=== PATIENT | female | born 1950 | race Caucasian/White ===

== ENCOUNTER → 2018-09-14 | Outpatient (CLI) | payer BC, MEDICARE ==
[~2018-09-14] MED LIST: IBUP600; LOSARTAN POTAS100 MG; METO25ER; TRIHYD253A; ZYRTEC10 M1
[2018-09-16 14:08] LABS: HPV 16 Negative (Negative); HPV 18 Positive (Negative); HPV OTHER HR TYPES Negative (Negative)
== END | disposition home or self-care (01) ==
LOC: LAB SHORT 12:49 → LAB 12:49
PROVIDERS: Obstetrics & Gynecology Gynecology
DX: Z91.89 Other specified personal risk factors, not elsewhere classified (principal)
CPT/HCPCS: 87624; G0123

== ENCOUNTER → 2018-10-13 | Outpatient (CLI) | payer BC, MEDICARE | END | disposition home or self-care (01) | LOC: PLD 07:08 → LAB SHORT 07:08 | DX: R87.810 Cervical high risk human papillomavirus (HPV) DNA test positive (principal) | CPT/HCPCS: 88305 ==

== ENCOUNTER → 2021-03-11 | Outpatient (CLI) | payer OTHER | END | disposition home or self-care (01) | LOC: LAB SHORT 08:33 | DX: E87.6 Hypokalemia (principal) | CPT/HCPCS: 84132 ==

== ENCOUNTER → 2021-09-10 | Outpatient (CLI) | payer OTHER ==
[2021-09-11 08:11] LABS: A/G RATIO 1.4 (1.2-2.2); ALKALINE PHOSPHATASE, S 93 IU/L (44-121); ALT (SGPT) 17 IU/L (0-32); AST (SGOT) 24 IU/L (0-40); BASO (ABSOLUTE) 0.1 x10E3/uL (0.0-0.2); BASOS 1 % (Not Estab.); BILIRUBIN, TOTAL 0.4 mg/dL (0.0-1.2); BUN 16 mg/dL (8-27); BUN/CREATININE RATIO 25 (12-28); CALCIUM, SERUM 9.1 mg/dL (8.7-10.3); CARBON DIOXIDE, TOTAL 26 mmol/L (20-29); CHLORIDE, SERUM 99 mmol/L (96-106); CHOLESTEROL, TOTAL 191 mg/dL (100-199); CREATININE, SERUM 0.63 mg/dL (0.57-1.00); EGFR IF AFRICN AM 104 (>59); EGFR IF NONAFRICN AM 91 (>59); EOS 3 % (Not Estab.); EOS (ABSOLUTE) 0.2 x10E3/uL (0.0-0.4); GLOBULIN, TOTAL 2.8 g/dL (1.5-4.5); GLUCOSE, SERUM 106 mg/dL (65-99); HDL CHOLESTEROL 98 mg/dL (>39); HEMATOCRIT 36.5 % (34.0-46.6); IMMATURE GRANULOCYTES 0 % (Not Estab.); LDL CHOLESTEROL CALC 79 mg/dL (0-99); LYMPHS 26 % (Not Estab.); LYMPHS (ABSOLUTE) 1.4 x10E3/uL (0.7-3.1); MCH 29.9 pg (26.6-33.0); MCHC 32.9 g/dL (31.5-35.7); MCV 91 fL (79-97); MONOCYTES 9 % (Not Estab.); MONOCYTES(ABSOLUTE) 0.5 x10E3/uL (0.1-0.9); NEUTROPHILS 61 % (Not Estab.); NEUTROPHILS (ABSOLUTE) 3.1 x10E3/uL (1.4-7.0); PLATELETS 242 x10E3/uL (150-450); POTASSIUM, SERUM 3.9 mmol/L (3.5-5.2); PROTEIN, TOTAL, SERUM 6.8 g/dL (6.0-8.5); RBC 4.02 x10E6/uL (3.77-5.28); RDW 13.4 % (11.7-15.4); SODIUM, SERUM 137 mmol/L (134-144); TRIGLYCERIDES 80 mg/dL (0-149); VLDL CHOLESTEROL CAL 14 mg/dL (5-40); WBC 5.1 x10E3/uL (3.4-10.8)
== END | disposition home or self-care (01) ==
LOC: LAB SHORT 10:20
PROVIDERS: Hospitalist
DX: I10 Essential (primary) hypertension (principal)
CPT/HCPCS: 80053; 80061; 85025

== ENCOUNTER 2022-09-30 07:40 | Observation (INO) | payer OTHER ==
[~2022-09-30] VITALS: Ht 157.5 cm; Wt 107.0 kg
[~2022-09-30 07:40] MED LIST changes: +ALBU90OI; +DYAZIDE 37.5-21 EACH PO; -IBUP600; +IBUP600 PO; +LOSARTAN POTAS100 M1 PO; -LOSARTAN POTAS100 MG; +METO100ER PO; +MONT10T PO; +OMEP20ER PO; +Pulmicort Fle180 MCG INH; -TRIHYD253A; -ZYRTEC10 M1; +ZYRTEC10 M1 PO
--- NOTE | 2022-09-30 18:47 | NUR ---
PT SUMMARY: PT ARRIVED IN THE ROOM FROM THE [facility] AT APPROX 1400, PT IS PSOT ANGIOPLASTY NO STENTS, TO RE-ATTEMPT ANGIO AGAIN IN AM TO OPEN UP THE REMAINING OCCLUDED VESSELS, RIGHT RADIAL SITE REMAINS CDI NO HEMATOMA/BLEEDING AROUND THE SITE, IMMOBILIZER IN PLACE. VITALS HAS BEEN STABLE. PT AMBULATORY IN THE ROOM ALERT AND ORIENTED X4. PT C/O CHEST PRESSURE 3/10 X1 PT STATED ITS NOT THE SAME ITS BEEN BEFORE THE PROCEDURE, MOST LIKELY BEING SORE FROM ANGIOPLASTY. SON HAS BEEN AT THE BEDSIDE UNTIL END OF SHIFT AWARE OF THE PLAN OF CARE. NO OTHER ISSUES REPORTED AT THIS TIME, PT CALLS APPROPRIATELY. WILL MONITOR
--- NOTE | 2022-10-01 04:54 | NUR ---
SHIFT SUMMARY: Uneventful shift. Patient's vitals are stable, no complaints of chest pain. Right radial site clean, intact, soft. Patient ambulating and performing ADLS independently. NPO except sips of water since midnight pending repeat angio today.
[2022-10-01 08:27] LABS: BASOPHILS ABSOLUTE AUTO 0.03 K/mm3 (0.00-0.23); BASOPHILS PERCENT AUTO 1 % (0-2); EOSINOPHILS ABSOLUTE AUTO 0.15 K/mm3 (0.00-0.68); EOSINOPHILS PERCENT AUTO 3 % (0-6); Hematocrit 35.8 % (33.0-51.0); IMMATURE GRAN ABSOLUTE AUTO 0.01 K/mm3 (0.00-0.10); IMMATURE GRAN PERCENT AUTO 0 % (0-1); LYMPHOCYTES ABSOLUTE AUTO 1.22 K/mm3 (0.84-5.20); LYMPHOCYTES PERCENT AUTO 24 % (21-46); MONOCYTES ABSOLUTE AUTO 0.58 K/mm3 (0.16-1.47); MONOCYTES PERCENT AUTO 12 % (4-13); Mean Corpuscular HGB 30.3 pg (26.0-34.0); Mean Corpuscular HGB Conc 33.5 g/dL (31.5-36.5); Mean Corpuscular Volume 90 fL (80-100); Mean Platelet Volume 11.3 fL (9.1-12.4); NEUTROPHILS ABSOLUTE AUTO 3.06 K/mm3 (1.96-9.15); NEUTROPHILS PERCENT AUTO 61 % (41-73); Platelet Count 250 K/mm3 (150-400); RDW Coefficient Variation 16.1 % (11.7-14.2); RDW Standard Deviation 53.7 fL (35.1-46.3); Red Blood Cell Count 3.96 M/mm3 (3.80-5.20); White Blood Cell Count 5.05 K/mm3 (4.00-11.30)
[2022-10-01 08:52] LABS: Bun/Creatinine Ratio 22.3 (12.0-20.0); Calcium, Blood 9.2 mg/dL (8.5-10.1); Creatinine, Blood 0.67 mg/dL (0.40-1.00); Potassium, Blood 3.7 mmol/L (3.5-5.5)
--- NOTE | 2022-10-01 18:18 | NUR ---
END OF SHIFT NOTE PT IS A&O X 4, SPO2: >92% on RA. SINUS CAROL, HR 50-60 *AM METOPROLOL SUC HELD DUE TO HR IN THE 50s. BP THEN ELEVATED, IV HYDRALAZINE GIVEN PER MD ORDER. PT FEELING "HOT ACROSS FACE & EYES" & PT CHEEKS FLUSH AFTER IV ADMINISTRATION. SYMTPOMS QUICKLY RESOLVED. PT REPORTING SOB, CHEST PAIN, AND PRESSURE ONLY WHEN AMBULATING TO BATHROOM. DR. PERALES IS SEEKING TRANSFER TO ANOTHER FACILITY FOR TX. PTS FAMILY HAS REMAINED AT BEDSIDE THROUGHOUT THE SHIFT.
--- NOTE | 2022-10-01 18:50 | NUR ---
THIS RN AGREES W/ STUDENT NURSE END OF SHIFT NOTE & CHARTING THIS SHIFT.
--- NOTE | 2022-10-01 20:05 | NUR ---
ASSUMED CARE. AT BEDSIDE, WATCHING A MOVIE WITH HER. DENIES ANY CHEST PAIN OR DISCOMFORT. STATES SHE DOES GET MILD PRESSURE IN CHEST WHEN SHE GETS UP TO THE BATHROOM, SOB WELL. STATES IT TAKES HER ABOUT A MIN OR TWO TO RECOVER. CHEST PAIN WHEN SHE HAS IT IS MILD, TOLERABLE. MILD EDEMA TO BLE. VS WNL AT THIS TIME. DENIES ANY NEEDS. WILL MONITOR.
--- NOTE | 2022-10-02 06:35 | NUR ---
SHIFT SUMMARY: PT REMAINED STABLE T/O NIGHT. NO CHEST PAIN OR SOB NOTED UNLESS SHE GOT UP TO THE BATHROOM AT WHICH DYSPNEA ONLY LASTED A MINUTE OR SO. ABLE TO GET UP INDEPENDANTLY WITH NO DIZZINESS. VS REMAINED STABLE. RIGHT RADIAL SITE WITH ARMBOARD, NO HEMATOMA, OR SIGNS OF BLEEDING. PLAN IS FOR DISCHARGE OR COBRA TRANSFER TODAY. PT IS AWARE OF PLAN. NO OTHER CHANGES TO REPORT. CALL LIGHT IS IN REACH.
--- NOTE | 2022-10-02 18:19 | NUR ---
END OF SHIFT NOTE PT A&O X4. VSS. SPO2 > 92% ON RA. MONITOR SHOWING SR, HR 60s. PT W/ NO CP/PRESSURE THIS SHIFT. PT AWAITING TRANSER TO ANOTHER FACILITY, ON WAITING LIST FOR BED.
--- NOTE | 2022-10-02 18:51 | NUR ---
COBRA UPDATE BED ASSIGNMENT FROM [facility]. REPORT CALLED TO [facility]EPTING [facility]. TRANSPORT TO TAKE PT WHEN AVAILABLE.
--- NOTE | 2022-10-02 20:21 | NUR ---
ASSUMPTION OF CARE AND TRANSFER NOTE PT A&O X4. PT DENIES CP OR PRESSURE, DENIES SOB. VSS. PT RESTING IN BEDSIDE CHAIR W/DAUGHTER KAREN AT BEDSIDE. PT PLESANT UPON INTERACTION. PT DENIES ANY CONCERNS OR NEEDS AT THIS TIME. HR SR W/RATE IN 60'S. THIS RN INFORMED PT AND DAUGHTER THAT TRANSPORTATION WAS CALLED AND SHOULD ARRIVE SOON. TRANSPORTATION ARRIVED AT [address] [facility] PT. REPORT GIVEN BY THIS RN. PT BELONGINGS SENT WITH HER AND TRANSPORT. PT LEFT VIA [facility], PT TRANSFERRED SELF TO [facility]. DAUGHTER KAREN WILL FOLLOW PT UP.
== END 2022-10-02 20:35 | disposition short-term general hospital (02) ==
LOC: PCU 07:40 → MHTC 07:40 → PCU 13:59 → MHTC 10-02 20:34 → PCU 10-02 20:34
PROVIDERS: Internal Medicine Cardiovascular Disease; ADMIT Internal Medicine Cardiovascular Disease
DX: R07.89 Other chest pain (principal); I25.10 Atherosclerotic heart disease of native coronary artery without angina pectoris; I10 Essential (primary) hypertension; E78.5 Hyperlipidemia, unspecified; J44.9 Chronic obstructive pulmonary disease, unspecified; G47.33 Obstructive sleep apnea (adult) (pediatric); E66.9 Obesity, unspecified; Z79.899 Other long term (current) drug therapy; Z88.2 Allergy status to sulfonamides; Z88.8 Allergy status to other drugs, medicaments and biological substances
CPT/HCPCS: 36415; 76937; 80048; 85025; 85347; 92920; 93454; 94640; 94664; 94760; 99152; 99153; A9270; C1725; C1769; C1874; C1887; C1894; J0360; J1644; J2250; J2405; J3010; J7030; J7040; J7050; Q9967

== ENCOUNTER 2022-11-12 02:11 | Day surgery (SDC) | payer OTHER | END 2022-11-12 22:51 | disposition home or self-care (01) | LOC: WOUND 02:11 | DX: T81.32XA Disruption of internal operation (surgical) wound, not elsewhere classified, initial encounter (principal); Z88.2 Allergy status to sulfonamides; I10 Essential (primary) hypertension | CPT/HCPCS: A9270; G0463 ==

== ENCOUNTER 2022-11-16 00:11 | Day surgery (SDC) | payer OTHER | END 2022-11-16 22:42 | disposition home or self-care (01) | LOC: WOUND 00:11 | DX: T81.31XD Disruption of external operation (surgical) wound, not elsewhere classified, subsequent encounter (principal); Y83.8 Other surgical procedures as the cause of abnormal reaction of the patient, or of later complication, without mention of misadventure at the time of the procedure; I10 Essential (primary) hypertension | CPT/HCPCS: G0463 ==

== ENCOUNTER 2022-11-18 03:30 | Day surgery (SDC) | payer OTHER | END 2022-11-18 23:01 | disposition home or self-care (01) | LOC: WOUND 03:30 | DX: T81.31XD Disruption of external operation (surgical) wound, not elsewhere classified, subsequent encounter (principal); Y83.8 Other surgical procedures as the cause of abnormal reaction of the patient, or of later complication, without mention of misadventure at the time of the procedure; I10 Essential (primary) hypertension | CPT/HCPCS: G0463 ==

== ENCOUNTER 2022-11-20 01:00 | Day surgery (SDC) | payer OTHER | END 2022-11-20 22:56 | disposition home or self-care (01) | LOC: WOUND 01:00 | DX: T81.31XD Disruption of external operation (surgical) wound, not elsewhere classified, subsequent encounter (principal); I10 Essential (primary) hypertension | CPT/HCPCS: G0463 ==

== ENCOUNTER 2022-11-23 00:17 | Day surgery (SDC) | payer OTHER | END 2022-11-23 22:52 | disposition home or self-care (01) | LOC: WOUND 00:17 | DX: T81.31XD Disruption of external operation (surgical) wound, not elsewhere classified, subsequent encounter (principal); I10 Essential (primary) hypertension | CPT/HCPCS: G0463 ==

== ENCOUNTER 2022-11-25 02:06 | Day surgery (SDC) | payer OTHER | END 2022-11-25 23:03 | disposition home or self-care (01) | LOC: WOUND 02:06 | DX: T81.31XD Disruption of external operation (surgical) wound, not elsewhere classified, subsequent encounter (principal); Y83.8 Other surgical procedures as the cause of abnormal reaction of the patient, or of later complication, without mention of misadventure at the time of the procedure; I10 Essential (primary) hypertension | CPT/HCPCS: G0463 ==

== ENCOUNTER 2022-11-27 01:54 | Day surgery (SDC) | payer OTHER | END 2022-11-27 22:49 | disposition home or self-care (01) | LOC: WOUND 01:54 | DX: T81.32XA Disruption of internal operation (surgical) wound, not elsewhere classified, initial encounter (principal); I10 Essential (primary) hypertension; Z95.1 Presence of aortocoronary bypass graft | CPT/HCPCS: G0463 ==

== ENCOUNTER 2022-11-30 00:48 | Day surgery (SDC) | payer OTHER | END 2022-11-30 22:59 | disposition home or self-care (01) | LOC: WOUND 00:48 | DX: T81.31XD Disruption of external operation (surgical) wound, not elsewhere classified, subsequent encounter (principal); S21.102D Unspecified open wound of left front wall of thorax without penetration into thoracic cavity, subsequent encounter; I10 Essential (primary) hypertension; X58.XXXD Exposure to other specified factors, subsequent encounter | CPT/HCPCS: G0463 ==

== ENCOUNTER 2022-12-07 00:39 | Day surgery (SDC) | payer OTHER | END 2022-12-07 22:41 | disposition home or self-care (01) | LOC: WOUND 00:39 | DX: T81.31XA Disruption of external operation (surgical) wound, not elsewhere classified, initial encounter (principal); S21.102A Unspecified open wound of left front wall of thorax without penetration into thoracic cavity, initial encounter; I10 Essential (primary) hypertension; Y83.8 Other surgical procedures as the cause of abnormal reaction of the patient, or of later complication, without mention of misadventure at the time of the procedure | CPT/HCPCS: G0463 ==

== ENCOUNTER 2022-12-14 00:14 | Day surgery (SDC) | payer OTHER | END 2022-12-14 22:59 | disposition home or self-care (01) | LOC: WOUND 00:14 | DX: T81.31XD Disruption of external operation (surgical) wound, not elsewhere classified, subsequent encounter (principal); S21.102D Unspecified open wound of left front wall of thorax without penetration into thoracic cavity, subsequent encounter; X58.XXXD Exposure to other specified factors, subsequent encounter; I10 Essential (primary) hypertension; Z95.1 Presence of aortocoronary bypass graft | CPT/HCPCS: G0463 ==

== ENCOUNTER 2022-12-21 08:00 | Day surgery (SDC) | payer OTHER | END 2022-12-21 23:59 | disposition home or self-care (01) | LOC: WOUND 08:00 | DX: T81.31XD Disruption of external operation (surgical) wound, not elsewhere classified, subsequent encounter (principal); Y83.8 Other surgical procedures as the cause of abnormal reaction of the patient, or of later complication, without mention of misadventure at the time of the procedure; S21.102D Unspecified open wound of left front wall of thorax without penetration into thoracic cavity, subsequent encounter; X58.XXXD Exposure to other specified factors, subsequent encounter; I10 Essential (primary) hypertension | CPT/HCPCS: G0463 ==

== ENCOUNTER → 2023-10-14 | Outpatient (CLI) | payer OTHER ==
[2023-10-15 17:05] LABS: HEPATITIS C AB CIA INTERP Negative (Negative); HEPATITIS C ANTIBODY CIA INDEX 0.06 IV
[2023-10-15 17:39] LABS: HIV 1,2 COMBO ANTIGEN/ANTIBODY Negative (Negative)
[2023-10-16 13:37] LABS: APTIMA MEDIA TYPE Urine; C. TRACHOMATIS BY TMA Negative (Negative); N. GONORRHOEAE BY TMA Negative (Negative); SPECIMEN SOURCE Urine
== END ==
LOC: LAB 11:30 → LAB SHORT 11:30
PROVIDERS: Hospitalist
DX: Z11.3 Encounter for screening for infections with a predominantly sexual mode of transmission (principal)
CPT/HCPCS: 86592; 86803; 87389; 87491; 87591

== ENCOUNTER 2024-04-12 10:53 | Day surgery (SDC) | payer OTHER ==
[~2024-04-12] VITALS: Ht 157.5 cm; Wt 91.5 kg
[~2024-04-12 10:53] MED LIST changes: +Lidocaine HCl/Pf 1% 5 ML VIAL ONE; +Triamcinolone Inj Susp 40 MG / ML 1ML Vial ONE
[2024-04-12] MEDS ORDERED: Aspir 8181 MG PO (12:15)
[2024-04-12] MEDS ORDERED: ATOR40TA PO (12:23)
[2024-04-12] MEDS ORDERED: KLOR-CON 1010 ME9 PO (12:24)
[2024-04-12] MEDS ORDERED: FUROSEMIDE40 MG PO (12:24)
[2024-04-12] MEDS ORDERED: METFORMIN HCL500 M3 PO (12:24)
[2024-04-12] MEDS ORDERED: Lactated Ringer's 1,000 ML IV ONE ×3 (12:46→15:32)
[2024-04-12] MEDS ORDERED: propofoL 20 ML IV ONE (13:07)
[2024-04-12] MEDS ORDERED: FentaNYL Citrate 50 MCG/ML 2 ML Injection ONE ×2 (13:08→15:15)
[2024-04-12] MEDS ORDERED: Midazolam HCl 1MG / ML 2ML Vial ONE (13:08)
--- NOTE | 2024-04-12 13:43 | NUR ---
04/12/[address] IN TO CUT CAST ON OP ARM
[2024-04-12] MEDS ORDERED: CeFAZolin Sodium 2,000 MG VIAL ONE (13:53)
[2024-04-12] MEDS ORDERED: NS 50 ML IV ONE (13:53)
--- NOTE | 2024-04-12 14:29 | NUR ---
04/12/24 1429 Lauren Bernal 0.15ML EPI (1MG/ML) ADDED TO 0.5% BUPIVACAINE TO MAKE BUPIVACAINE 0.5% WITH ePI 1:200,000 ON FIELD.
[2024-04-12] MEDS ORDERED: Bupivacaine 0.5% HCl 5 MG/ML 30MLVIAL INJ ONE (14:34)
[2024-04-12] MEDS ORDERED: EPINEPhrine HCl 1 MG/ML 1ML Amp XX ONE (14:35)
[2024-04-12] MEDS ORDERED: Ondansetron HCl 2 MG / ML 2ML Vial ONE (15:08)
[2024-04-12] MEDS ORDERED: Dexamethasone Sod Phos 10 MG/ML 1ML VIAL ONE (15:08)
[2024-04-12] MEDS ORDERED: ePHEDrine Sulfate 50 MG/ML 1ML Injection ONE (15:08)
[2024-04-12 15:57] VITALS: BP 154/87
--- NOTE | 2024-04-12 16:57 | NUR ---
04/12/24 1657 Phillip Galarza PULSE OXYMETRY INITIALLY SHOWED BREIF DROPS LOW 89% IN SDU. PT WAS ABLE TO QUICKLY RAISE O2 TO >94%. SHE DENIED DIZZINESS, SOB, AND OTHER RESPIRATORY SYMPTOMS. NONE WERE OBSERVED. PULSE OXYMETRY SWITCHED TO LEFT HAND AND PT MOVED TO CHAIR AT 1601. PT MAINTAINED O2 >94% FOLLOWING TRANSFER.
== END 2024-04-12 17:01 | disposition home or self-care (01) ==
LOC: ORSCSDS 10:53
PROVIDERS: Orthopaedic Surgery
PROC: 0PSH04Z Reposition Right Radius with Internal Fixation Device, Open Approach (ICD-10-PCS; principal; 2024-04-12 12:30)
DX: S52.501A Unspecified fracture of the lower end of right radius, initial encounter for closed fracture (principal); I10 Essential (primary) hypertension; K21.9 Gastro-esophageal reflux disease without esophagitis; E11.9 Type 2 diabetes mellitus without complications; E03.9 Hypothyroidism, unspecified; J45.909 Unspecified asthma, uncomplicated; E66.01 Morbid (severe) obesity due to excess calories; Z68.36 Body mass index [BMI] 36.0-36.9, adult; I20.89 Other forms of angina pectoris; Z79.84 Long term (current) use of oral hypoglycemic drugs; Z79.899 Other long term (current) drug therapy
CPT/HCPCS: 82947; C1713; J0171; J0690; J1100; J2001; J2250; J2405; J2704; J3010; J3301; J7120

== ENCOUNTER → 2024-11-16 | Outpatient (CLI) | payer OTHER ==
[~2024-11-16] MED LIST changes: +ATOR40TA PO; +Aspir 8181 MG PO; +FUROSEMIDE40 MG PO; +KLOR-CON 1010 ME9 PO; -Lidocaine HCl/Pf 1% 5 ML VIAL ONE; +METFORMIN HCL500 M3 PO; -Triamcinolone Inj Susp 40 MG / ML 1ML Vial ONE
== END ==
LOC: LAB SHORT 10:59 → LAB 10:59
DX: R31.9 Hematuria, unspecified (principal)
CPT/HCPCS: 87077; 87086; 87186

== ENCOUNTER → 2025-03-29 | Outpatient (CLI) | payer OTHER ==
[~2025-03-29] MED LIST changes: +BREO ELLIPTA 21 EAC1; +[UNRECOGNIZED DRUG - REMARK]
[2025-03-29 15:48] LABS: Anion Gap 8.0 mmol/L (3-11); Blood Urea Nitrogen 21.0 mg/dL (8-24); CO2, Blood 30.0 mmol/L (21-32); Calcium, Blood 8.7 mg/dL (8.5-10.1); Chloride, Blood 103.0 mmol/L (98-108); Creatinine, Blood 0.7 mg/dL (0.40-1.00); Glucose, Blood 104.0 mg/dL (70-99); Potassium, Blood 3.9 mmol/L (3.5-5.5); Sodium, Blood 137.0 mmol/L (136-145)
== END ==
LOC: LAB SHORT 13:38 → LAB 13:38
PROVIDERS: Hospitalist
DX: I11.0 Hypertensive heart disease with heart failure (principal)
CPT/HCPCS: 80048